=== PATIENT | male | born 1995 | race Caucasian/White ===

== ENCOUNTER 2016-08-26 16:41 | Emergency (ER) | payer OTHER ==
[~2016-08-26] VITALS: Ht 170.2 cm; Wt 68.2 kg
[~2016-08-26 16:41] MED LIST: ADDERALL5 MG; DUO-KAPS1 CAP PO; FOLIC ACID 11 MG/TA1 PO; PAMELOR 10MG10 MG; THIAMINE 1100 MG/TAB PO; VYVANSE10 MG; VYVANSE10 MG PO
[2016-08-26 16:45] VITALS: TEMP 98.6
[2016-08-26] MEDS ORDERED: PAMELOR 10MG10 MG PO (16:47)
[2016-08-26] MEDS ORDERED: AMITRIPTYLINE H10 M1 PO (16:48)
[2016-08-26] MEDS ORDERED: ZOLOFT 50MG50 MG PO (16:56)
[2016-08-26 18:55] VITALS: BP 127/74; PULSE 69
== END 2016-08-26 18:57 | disposition home or self-care (01) ==
LOC: COL.ER 16:41
DX: S93.402A Sprain of unspecified ligament of left ankle, initial encounter (principal); W10.9XXA Fall (on) (from) unspecified stairs and steps, initial encounter

== ENCOUNTER 2017-12-27 11:48 | Emergency (ER) | payer OTHER ==
[~2017-12-27] VITALS: Ht 170.2 cm; Wt 81.8 kg
[~2017-12-27 11:48] MED LIST changes: +AMITRIPTYLINE H10 M1 PO; +PAMELOR 10MG10 MG PO; +ZOLOFT 50MG50 MG PO
[2017-12-27 11:50] VITALS: TEMP 97.8
[2017-12-27 12:11] VITALS: BP 123/71; PULSE 65
== END 2017-12-27 12:11 | disposition home or self-care (01) ==
LOC: COL.ER 11:48
DX: K40.90 Unilateral inguinal hernia, without obstruction or gangrene, not specified as recurrent (principal); F32.9 Major depressive disorder, single episode, unspecified; F17.210 Nicotine dependence, cigarettes, uncomplicated; F12.90 Cannabis use, unspecified, uncomplicated

== ENCOUNTER 2018-08-31 11:47 | Emergency (ER) | payer OTHER ==
[~2018-08-31] VITALS: Ht 172.7 cm; Wt 82.3 kg
[2018-08-31 11:54] VITALS: BP 120/60; TEMP 98.6
[2018-08-31] MEDS ORDERED: PRILOSEC 20MG20 MG PO (12:09)
[2018-08-31] MEDS ORDERED: FLONASE NASAL S16 GM NS (12:09)
[2018-08-31 12:47] VITALS: PULSE 76
== END 2018-08-31 12:48 | disposition home or self-care (01) ==
LOC: COL.ER 11:47
DX: S93.402A Sprain of unspecified ligament of left ankle, initial encounter (principal); F32.9 Major depressive disorder, single episode, unspecified; X50.0XXA Overexertion from strenuous movement or load, initial encounter